=== PATIENT | male | born 1945 | race African-American/Black ===

== ENCOUNTER 2022-01-22 04:55 | Inpatient (IN) | payer MEDICARE ==
[~2022-01-22] VITALS: Ht 182.9 cm; Wt 89.4 kg
[2022-01-22] MEDS ORDERED: SODIUM CHLORIDE 0.9% 1,000 ML IV ONE (05:15)
[2022-01-22 05:48] LABS: BASOPHILS % 0.7 % (0.0-2.0); HEMATOCRIT. 34.2 % (42.0-52.0); LYMPHOCYTES % 20.2 % (20.0-50.0); MEAN CORPUSCULAR HEMOGLOBIN 29.4 pg (28.0-32.0); MEAN CORPUSCULAR VOLUME 91.6 fL (80.0-94.0); MEAN PLATELET VOLUME 7.7 fl (7.4-10.4); MONOCYTES % 13.1 % (2.0-8.0); PLATELET 330 x1000/uL (130-400); RED BLOOD CELL COUNT 3.74 mill/uL (4.7-6.1); RED CELL DISTRIBUTION WIDTH 14.8 % (11.6-14.6)
[2022-01-22 05:54] LABS: CHLORIDE 106 mEq/L (98-107)
[2022-01-22] MEDS ORDERED: METHYLPREDNISOLONE SOD SUCC 125 MG/2 ML VIAL IV ONE (07:45)
[2022-01-22] MEDS ORDERED: ALBUTEROL (0.083%) 2.5MG/3ML NEB HHN ONE (08:30)
[2022-01-22 10:02] LABS: BG BASE EXCESS 1.9 mmol/L (-2.0-2.0); BG CARBOXYHEMOGLOBIN 0.3 % (0.5-1.5); BG FRACTION INSPIRED OXYGEN 100; BG HCO3 ACT 28.6 mmol/L (22.0-26.0); BG METHEMOGLOBIN 0.1 % (0.0-1.5); BG OXYHEMOGLOBIN 90.6 % (94.0-97.0); BG PCO2 54.3 mmHg (35.0-45.0); BG PO2 67.2 mmHg (75.0-100.0); BG SAMPLE SITE UAL; BG TOTAL HEMOGLOBIN 12.1 g/dL (12.0-18.0); BG VENT MODE HIGH FLOW
[2022-01-22] MEDS ORDERED: DIGOXIN 500MCG/2ML AMP IV NR ×3 (13:45→18:30)
[2022-01-22] MEDS ORDERED: HYDROCODONE/ACETAMINOPHEN 5/325MG TABLET PO PRN ×2 (13:45→14:00)
[2022-01-22] MEDS ORDERED: ACETAMINOPHEN 650MG SUPP PR PRN ×2 (13:45→14:00)
[2022-01-22] MEDS ORDERED: DIPHENHYDRAMINE 50MG/ML VIAL IV PRN ×2 (13:45→14:00)
[2022-01-22] MEDS ORDERED: MAGNESIUM/ALUMINUM HYDROXIDE/SIMETHICONE 30ML UDC PO PRN ×2 (13:45→14:00)
[2022-01-22] MEDS ORDERED: IPRATROPIUM/ALBUTEROL 0.5-3(2.5)MG/3ML NEB NEB SCH (13:45)
[2022-01-22] MEDS ORDERED: GUAIFENESIN 200MG/10ML SUGAR FREE UDC PO PRN ×2 (13:45→14:00)
[2022-01-22] MEDS ORDERED: NA PHOS,M-B/NA PHOS,DI-BA ENEMA 118ML PR PRN ×2 (13:45→14:00)
[2022-01-22] MEDS ORDERED: DOCUSATE SODIUM 100MG CAPSULE PO PRN ×2 (13:45→14:00)
[2022-01-22] MEDS ORDERED: ONDANSETRON HCL 4MG/2ML INJ IV PRN ×2 (13:45→14:00)
[2022-01-22] MEDS ORDERED: ACETAMINOPHEN 325MG TABLET PO PRN ×2 (13:45→14:00)
[2022-01-22] MEDS ORDERED: IPRATROPIUM/ALBUTEROL 0.5-3(2.5)MG/3ML NEB NEB PRN ×2 (13:45→14:00)
[2022-01-22] MEDS ORDERED: METHYLPREDNISOLONE SOD SUCC 125 MG/2 ML VIAL IV SCH (13:45)
[2022-01-22] MEDS ORDERED: CLONIDINE 0.1MG TABLET PO PRN ×2 (13:45→14:00)
[2022-01-22] MEDS ORDERED: FAMOTIDINE 20MG/2ML VIAL IV SCH (13:45)
[2022-01-22] MEDS ORDERED: LORAZEPAM 0.5MG TABLET PO PRN ×2 (13:45→14:00)
[2022-01-22] MEDS ORDERED: MORPHINE SULFATE 2 MG/ML CPJ (NOT FOR IM USE) IV PRN (14:00)
[2022-01-22] MEDS ORDERED: ACETYLCYSTEINE 100MG/ML 10% VIAL 4ML INH SCH (14:00)
[2022-01-22] MEDS ORDERED: PIPERACILLIN/TAZOBACTAM 3.375 G in DEXTROSE 5% WATER 50 ML IV SCH ×2 (14:00→21:00)
[2022-01-22] MEDS ORDERED: NALOXONE HCL 0.4MG/ML VIAL IV PRN (14:15)
[2022-01-22] MEDS: ACETYLCYSTEINE 100MG/ML 10% VIAL 4ML INH SCH ×2 (14:30→21:50)
[2022-01-22] MEDS: PIPERACILLIN/TAZOBACTAM 3.375G in DEXT 5% WATER 50ML IV SCH (14:34)
[2022-01-22] MEDS: METHYLPREDNISOLONE SOD SUCC 40 MG/ML VIAL IV SCH ×2 (14:35→23:44)
[2022-01-22] MEDS: FAMOTIDINE 20MG/2ML VIAL IV SCH (14:40)
[2022-01-22 16:25] LABS: INR 1.1; PROTHROMBIN TIME 11.9 sec (9.6-11.0)
[2022-01-22 17:13] LABS: BG BASE EXCESS 0.7 mmol/L (-2.0-2.0); BG CARBOXYHEMOGLOBIN 0.2 % (0.5-1.5); BG DEOXYHEMOGLOBIN 12.3 % (0.0-5.0); BG FRACTION INSPIRED OXYGEN 40; BG HCO3 ACT 26.2 mmol/L (22.0-26.0); BG METHEMOGLOBIN 0.3 % (0.0-1.5); BG OXYGEN SATURATION 87.6 % (92.0-98.5); BG OXYHEMOGLOBIN 87.2 % (94.0-97.0); BG PCO2 45.7 mmHg (35.0-45.0); BG PH 7.376 (7.350-7.450); BG PO2 56.4 mmHg (75.0-100.0); BG SAMPLE SITE RIGHT RADIAL; BG TOTAL HEMOGLOBIN 11.4 g/dL (12.0-18.0); BG VENT MODE MASK - BIPAP
[2022-01-22 17:45] VITALS: BP 96/58
[2022-01-22 17:59] VITALS: BP 96/58
[2022-01-22] MEDS ORDERED: TRAZ-251 MT (18:07)
[2022-01-22] MEDS ORDERED: LISI40TA13 MT (18:07)
[2022-01-22] MEDS ORDERED: SPIR25TA6 MT (18:07)
[2022-01-22] MEDS ORDERED: APIX5TAB PO (18:07)
[2022-01-22] MEDS ORDERED: CARV12.545 MT (18:07)
[2022-01-22] MEDS ORDERED: POTA-189 PO (18:07)
[2022-01-22] MEDS ORDERED: FINA5TAB3 PO (18:07)
[2022-01-22] MEDS ORDERED: TAMS-11 PO (18:07)
[2022-01-22] MEDS ORDERED: FURO40TA5 MT (18:07)
[2022-01-22] MEDS ORDERED: ATOR40TA70 PO (18:07)
[2022-01-22] MEDS ORDERED: HYDR-4001 MT (18:07)
[2022-01-22] MEDS ORDERED: SILD100T69 MT (18:07)
[2022-01-22 18:34] LABS: BG BASE EXCESS -0.3 mmol/L (-2.0-2.0); BG CARBOXYHEMOGLOBIN 0.3 % (0.5-1.5); BG DEOXYHEMOGLOBIN 1.8 % (0.0-5.0); BG FRACTION INSPIRED OXYGEN 100; BG HCO3 ACT 25.6 mmol/L (22.0-26.0); BG METHEMOGLOBIN 0.1 % (0.0-1.5); BG OXYGEN SATURATION 98.2 % (92.0-98.5); BG OXYHEMOGLOBIN 97.8 % (94.0-97.0); BG PCO2 47.2 mmHg (35.0-45.0); BG PH 7.352 (7.350-7.450); BG PO2 119.3 mmHg (75.0-100.0); BG SAMPLE SITE RIGHT RADIAL; BG TOTAL HEMOGLOBIN 11.5 g/dL (12.0-18.0); BG VENT MODE MASK - BIPAP
[2022-01-22] MEDS: IPRATROPIUM/ALBUTEROL 0.5-3(2.5)MG/3ML NEB NEB SCH (21:50)
[2022-01-22 22:00] VITALS: BP 144/85
[2022-01-23] VITALS (17 sets, daily range): BP systolic 108–151; BP diastolic 52–103
[2022-01-23] MEDS: PIPERACILLIN/TAZOBACTAM 3.375G in DEXT 5% WATER 50ML IV SCH ×4 (00:10→21:04)
[2022-01-23] MEDS: IPRATROPIUM/ALBUTEROL 0.5-3(2.5)MG/3ML NEB NEB SCH ×4 (03:57→20:15)
[2022-01-23] MEDS: METHYLPREDNISOLONE SOD SUCC 40 MG/ML VIAL IV SCH ×3 (05:59→21:04)
[2022-01-23 06:56] LABS: BASOPHILS % 0.1 % (0.0-2.0); HEMATOCRIT. 34.5 % (42.0-52.0); LYMPHOCYTES % 8.4 % (20.0-50.0); MEAN CORPUSCULAR HEMOGLOBIN 29.2 pg (28.0-32.0); MEAN CORPUSCULAR VOLUME 91.2 fL (80.0-94.0); MEAN PLATELET VOLUME 7.8 fl (7.4-10.4); MONOCYTES % 7.6 % (2.0-8.0); NEUTROPHILS % 83.9 % (40.0-76.0); PLATELET 341 x1000/uL (130-400); RED BLOOD CELL COUNT 3.78 mill/uL (4.7-6.1)
[2022-01-23 07:23] LABS: CHLORIDE 107 mEq/L (98-107)
[2022-01-23] MEDS: ACETYLCYSTEINE 100MG/ML 10% VIAL 4ML INH SCH ×2 (07:54→14:06)
[2022-01-23] MEDS: FAMOTIDINE 20MG/2ML VIAL IV SCH (09:27)
[2022-01-23 09:48] LABS: BG CARBOXYHEMOGLOBIN 0.1 % (0.5-1.5); BG DEOXYHEMOGLOBIN 7.9 % (0.0-5.0); BG FRACTION INSPIRED OXYGEN 100; BG HCO3 ACT 30.2 mmol/L (22.0-26.0); BG METHEMOGLOBIN 0.2 % (0.0-1.5); BG OXYGEN SATURATION 92.1 % (92.0-98.5); BG OXYHEMOGLOBIN 91.8 % (94.0-97.0); BG PCO2 47.2 mmHg (35.0-45.0); BG PH 7.424 (7.350-7.450); BG PO2 62.7 mmHg (75.0-100.0); BG SAMPLE SITE RIGHT RADIAL; BG TOTAL HEMOGLOBIN 12.2 g/dL (12.0-18.0); BG VENT MODE HIGH FLOW
[2022-01-23] MEDS: ALPRAZOLAM 0.25 MG TABLET PO PRN (10:20)
[2022-01-23] MEDS ORDERED: SILDENAFIL CITRATE MT SCH (10:45)
[2022-01-23] MEDS ORDERED: SPIRONOLACTONE 5MG/ML 1ML ORAL SYR(NEO) PO SCH (10:45)
[2022-01-23] MEDS ORDERED: DIGOXIN 500MCG/2ML AMP IV NR (11:15)
[2022-01-23] MEDS: FUROSEMIDE 40MG TABLET PO SCH (11:37)
[2022-01-23] MEDS: TAMSULOSIN HCL 0.4MG SR CAPSULE PO SCH (11:38)
[2022-01-23] MEDS: SPIRONOLACTONE 25MG TABLET PO SCH (11:38)
[2022-01-23] MEDS: FINASTERIDE 5MG TABLET PO SCH (11:39)
[2022-01-23] MEDS: ENOXAPARIN 100MG/ML SYR SUBCUT SCH ×2 (11:40→21:04)
[2022-01-23] MEDS ORDERED: DIGOXIN 500MCG/2ML AMP IV PRN (11:45)
[2022-01-23] MEDS ORDERED: MORPHINE SULFATE 2 MG/ML CPJ (NOT FOR IM USE) IV NR (12:00)
[2022-01-23] MEDS: DILTIAZEM HCL 30MG TABLET PO SCH ×2 (13:02→17:49)
[2022-01-23 14:40] LABS: CLARITY URINE CLOUDY (CLEAR); COLOR URINE RED (YELLOW); KETONES URINE NEGATIVE (NEGATIVE); LEUKOCYTE ESTERASE URINE 2+ (NEGATIVE); NITRITE URINE NEGATIVE (NEGATIVE); OCCULT BLOOD URINE 3+ (NEGATIVE); PROTEIN URINE 2+ (NEGATIVE); SPECIFIC GRAVITY URINE 1.017 (1.005-1.030); UROBILINOGEN URINE 0.2 E.U./dL (0.2-1.0)
[2022-01-23] MEDS: DIGOXIN 500MCG/2ML AMP IV SCH (17:49)
[2022-01-23] MEDS: TRAZODONE HCL 50MG TABLET PO SCH (21:05)
[2022-01-23] MEDS: ATORVASTATIN CALCIUM 40MG TABLET PO SCH (21:05)
[2022-01-24] VITALS (12 sets, daily range): BP systolic 106–140; BP diastolic 57–80
[2022-01-24] MEDS: IPRATROPIUM/ALBUTEROL 0.5-3(2.5)MG/3ML NEB NEB SCH ×4 (01:02→20:27)
[2022-01-24] MEDS: ALPRAZOLAM 0.25 MG TABLET PO PRN (01:10)
[2022-01-24] MEDS: DILTIAZEM HCL 30MG TABLET PO SCH ×5 (01:10→23:04)
[2022-01-24] MEDS: METHYLPREDNISOLONE SOD SUCC 40 MG/ML VIAL IV SCH ×3 (05:01→21:40)
[2022-01-24] MEDS: PIPERACILLIN/TAZOBACTAM 3.375G in DEXT 5% WATER 50ML IV SCH ×3 (05:01→21:40)
[2022-01-24 06:18] LABS: HEMATOCRIT. 32.1 % (42.0-52.0); HEMOGLOBIN. 10.5 g/dL (14.0-18.0); MEAN CORPUSCULAR HEMOGLOBIN 29.2 pg (28.0-32.0); MEAN CORPUSCULAR VOLUME 89.1 fL (80.0-94.0); MEAN PLATELET VOLUME 8.2 fl (7.4-10.4); PLATELET 355 x1000/uL (130-400); RED CELL DISTRIBUTION WIDTH 15.5 % (11.6-14.6)
[2022-01-24 06:35] LABS: CHLORIDE 108 mEq/L (98-107)
[2022-01-24] MEDS: FINASTERIDE 5MG TABLET PO SCH (08:44)
[2022-01-24] MEDS: FUROSEMIDE 40MG TABLET PO SCH (08:45)
[2022-01-24] MEDS: SPIRONOLACTONE 25MG TABLET PO SCH (08:45)
[2022-01-24] MEDS: FAMOTIDINE 20MG/2ML VIAL IV SCH (08:45)
[2022-01-24] MEDS: TAMSULOSIN HCL 0.4MG SR CAPSULE PO SCH (08:45)
[2022-01-24] MEDS: ENOXAPARIN 100MG/ML SYR SUBCUT SCH ×2 (08:46→18:24)
[2022-01-24] MEDS: ACETYLCYSTEINE 100MG/ML 10% VIAL 4ML INH SCH ×2 (09:04→15:09)
[2022-01-24 10:03] LABS: PLATELET ESTIMATE NORMAL
[2022-01-24 16:51] LABS: BG BASE EXCESS 3.2 mmol/L (-2.0-2.0); BG CARBOXYHEMOGLOBIN 0.1 % (0.5-1.5); BG DEOXYHEMOGLOBIN 6.2 % (0.0-5.0); BG FRACTION INSPIRED OXYGEN 100; BG METHEMOGLOBIN 0.3 % (0.0-1.5); BG OXYGEN SATURATION 93.8 % (92.0-98.5); BG OXYHEMOGLOBIN 93.4 % (94.0-97.0); BG PCO2 50.1 mmHg (35.0-45.0); BG PH 7.381 (7.350-7.450); BG PO2 73.3 mmHg (75.0-100.0); BG SAMPLE SITE RIGHT RADIAL; BG TOTAL HEMOGLOBIN 11.5 g/dL (12.0-18.0); BG VENT MODE MASK - BIPAP
[2022-01-24] MEDS: DIGOXIN 500MCG/2ML AMP IV SCH (17:36)
[2022-01-24] MEDS: FUROSEMIDE 40MG/4ML VIAL IVP SCH (17:36)
[2022-01-24] MEDS: ATORVASTATIN CALCIUM 40MG TABLET PO SCH (21:40)
[2022-01-24] MEDS: TRAZODONE HCL 50MG TABLET PO SCH (21:40)
[2022-01-25] VITALS (13 sets, daily range): BP systolic 102–132; BP diastolic 45–82
[2022-01-25] MEDS: ACETYLCYSTEINE 100MG/ML 10% VIAL 4ML INH SCH ×4 (00:10→21:14)
[2022-01-25] MEDS: IPRATROPIUM/ALBUTEROL 0.5-3(2.5)MG/3ML NEB NEB SCH ×4 (00:10→21:14)
[2022-01-25] MEDS: PIPERACILLIN/TAZOBACTAM 3.375G in DEXT 5% WATER 50ML IV SCH ×3 (06:18→21:38)
[2022-01-25] MEDS: METHYLPREDNISOLONE SOD SUCC 40 MG/ML VIAL IV SCH ×3 (06:18→21:38)
[2022-01-25] MEDS: DILTIAZEM HCL 30MG TABLET PO SCH ×3 (06:19→16:47)
[2022-01-25 06:43] LABS: HEMATOCRIT. 31.1 % (42.0-52.0); HEMOGLOBIN. 10.1 g/dL (14.0-18.0); MEAN CORPUSCULAR HEMOGLOBIN 28.9 pg (28.0-32.0); MEAN CORPUSCULAR VOLUME 88.9 fL (80.0-94.0); MEAN PLATELET VOLUME 8.1 fl (7.4-10.4); PLATELET 338 x1000/uL (130-400); RED CELL DISTRIBUTION WIDTH 15.1 % (11.6-14.6)
[2022-01-25 07:29] LABS: CHLORIDE 106 mEq/L (98-107)
[2022-01-25] MEDS: ENOXAPARIN 100MG/ML SYR SUBCUT SCH ×2 (09:00→21:39)
[2022-01-25] MEDS: FUROSEMIDE 40MG/4ML VIAL IVP SCH ×2 (09:38→16:46)
[2022-01-25] MEDS: TAMSULOSIN HCL 0.4MG SR CAPSULE PO SCH (09:39)
[2022-01-25] MEDS: SPIRONOLACTONE 25MG TABLET PO SCH (09:39)
[2022-01-25] MEDS: FINASTERIDE 5MG TABLET PO SCH (09:39)
[2022-01-25] MEDS: FAMOTIDINE 20MG TABLET PO SCH (09:39)
[2022-01-25] MEDS: DIGOXIN 500MCG/2ML AMP IV SCH (16:47)
[2022-01-25] MEDS: TRAZODONE HCL 50MG TABLET PO SCH (21:38)
[2022-01-25] MEDS: ATORVASTATIN CALCIUM 40MG TABLET PO SCH (21:38)
[2022-01-26] VITALS (13 sets, daily range): BP systolic 96–156; BP diastolic 47–71
[2022-01-26] MEDS: IPRATROPIUM/ALBUTEROL 0.5-3(2.5)MG/3ML NEB NEB SCH ×4 (01:36→21:20)
[2022-01-26 05:45] LABS: HEMATOCRIT. 31.1 % (42.0-52.0); HEMOGLOBIN. 10.1 g/dL (14.0-18.0); MEAN CORPUSCULAR HEMOGLOBIN 29.1 pg (28.0-32.0); MEAN CORPUSCULAR VOLUME 89.8 fL (80.0-94.0); PLATELET 295 x1000/uL (130-400); RED BLOOD CELL COUNT 3.47 mill/uL (4.7-6.1); RED CELL DISTRIBUTION WIDTH 15.1 % (11.6-14.6)
[2022-01-26 06:04] LABS: CHLORIDE 103 mEq/L (98-107)
[2022-01-26] MEDS: METHYLPREDNISOLONE SOD SUCC 40 MG/ML VIAL IV SCH ×3 (06:07→21:25)
[2022-01-26] MEDS: PIPERACILLIN/TAZOBACTAM 3.375G in DEXT 5% WATER 50ML IV SCH ×3 (06:07→21:16)
[2022-01-26] MEDS: DILTIAZEM HCL 30MG TABLET PO SCH ×3 (06:27→11:37)
[2022-01-26] MEDS: ACETYLCYSTEINE 100MG/ML 10% VIAL 4ML INH SCH ×2 (07:43→14:54)
[2022-01-26] MEDS: FUROSEMIDE 40MG/4ML VIAL IVP SCH ×2 (09:20→17:43)
[2022-01-26] MEDS: FAMOTIDINE 20MG TABLET PO SCH (09:20)
[2022-01-26] MEDS: FINASTERIDE 5MG TABLET PO SCH (09:20)
[2022-01-26] MEDS: TAMSULOSIN HCL 0.4MG SR CAPSULE PO SCH (09:23)
[2022-01-26] MEDS: SPIRONOLACTONE 25MG TABLET PO SCH (09:23)
[2022-01-26] MEDS: ENOXAPARIN 100MG/ML SYR SUBCUT SCH ×2 (09:24→21:17)
[2022-01-26 10:27] LABS: BG BASE EXCESS 6.1 mmol/L (-2.0-2.0); BG CARBOXYHEMOGLOBIN 0.3 % (0.5-1.5); BG DEOXYHEMOGLOBIN 5.6 % (0.0-5.0); BG FRACTION INSPIRED OXYGEN 100; BG HCO3 ACT 30.3 mmol/L (22.0-26.0); BG METHEMOGLOBIN 0.3 % (0.0-1.5); BG OXYGEN SATURATION 94.4 % (92.0-98.5); BG OXYHEMOGLOBIN 93.8 % (94.0-97.0); BG PCO2 42.1 mmHg (35.0-45.0); BG PH 7.475 (7.350-7.450); BG PO2 75.7 mmHg (75.0-100.0); BG SAMPLE SITE RIGHT RADIAL; BG TOTAL HEMOGLOBIN 11.7 g/dL (12.0-18.0); BG VENT MODE MASK - BIPAP
[2022-01-26] MEDS ORDERED: MIDODRINE HCL 5MG TABLET PO NR (11:15)
[2022-01-26] MEDS: MIDODRINE HCL 5MG TABLET PO SCH ×2 (13:08→17:43)
[2022-01-26 17:31] LABS: PLATELET ESTIMATE NORMAL
[2022-01-26] MEDS: DIGOXIN 125MCG TABLET PO SCH (17:43)
[2022-01-26 20:19] LABS: PLATELET ESTIMATE NORMAL
[2022-01-26] MEDS: TRAZODONE HCL 50MG TABLET PO SCH (21:17)
[2022-01-26] MEDS: ATORVASTATIN CALCIUM 40MG TABLET PO SCH (21:17)
[2022-01-27] VITALS (12 sets, daily range): BP systolic 94–120; BP diastolic 53–87
[2022-01-27] MEDS: IPRATROPIUM/ALBUTEROL 0.5-3(2.5)MG/3ML NEB NEB SCH ×4 (00:39→18:00)
[2022-01-27] MEDS: ACETYLCYSTEINE 100MG/ML 10% VIAL 4ML INH SCH ×3 (00:39→14:00)
[2022-01-27] MEDS: PIPERACILLIN/TAZOBACTAM 3.375G in DEXT 5% WATER 50ML IV SCH (06:05)
[2022-01-27] MEDS: METHYLPREDNISOLONE SOD SUCC 40 MG/ML VIAL IV SCH ×3 (06:06→22:17)
[2022-01-27 07:24] LABS: HEMATOCRIT. 32.1 % (42.0-52.0); HEMOGLOBIN. 10.4 g/dL (14.0-18.0); MEAN CORPUSCULAR VOLUME 89.4 fL (80.0-94.0); MEAN PLATELET VOLUME 7.7 fl (7.4-10.4); PLATELET 303 x1000/uL (130-400); RED BLOOD CELL COUNT 3.59 mill/uL (4.7-6.1); RED CELL DISTRIBUTION WIDTH 15.1 % (11.6-14.6)
[2022-01-27 07:57] LABS: CHLORIDE 99 mEq/L (98-107)
[2022-01-27] MEDS: FUROSEMIDE 40MG/4ML VIAL IVP SCH ×2 (09:27→17:58)
[2022-01-27] MEDS: MIDODRINE HCL 5MG TABLET PO SCH ×3 (09:27→17:58)
[2022-01-27] MEDS: FAMOTIDINE 20MG TABLET PO SCH (09:27)
[2022-01-27] MEDS: FINASTERIDE 5MG TABLET PO SCH (09:27)
[2022-01-27] MEDS: TAMSULOSIN HCL 0.4MG SR CAPSULE PO SCH (09:27)
[2022-01-27] MEDS: ENOXAPARIN 100MG/ML SYR SUBCUT SCH ×2 (09:28→22:17)
[2022-01-27] MEDS ORDERED: IPRA3AMP9 NEB (13:00)
[2022-01-27] MEDS ORDERED: P20 PO (13:00)
[2022-01-27] MEDS ORDERED: MIDO5TAB4 MT (13:00)
[2022-01-27 13:15] LABS: PLATELET ESTIMATE NORMAL
[2022-01-27] MEDS: MORPHINE SULFATE 2 MG/ML CPJ (NOT FOR IM USE) IV PRN ×2 (16:14→22:36)
[2022-01-27] MEDS: DIGOXIN 125MCG TABLET PO SCH (18:10)
[2022-01-27] MEDS: TRAZODONE HCL 50MG TABLET PO SCH (22:17)
[2022-01-27] MEDS: ATORVASTATIN CALCIUM 40MG TABLET PO SCH (22:17)
[2022-01-28] VITALS (13 sets, daily range): BP systolic 83–124; BP diastolic 46–84
[2022-01-28] MEDS: METHYLPREDNISOLONE SOD SUCC 40 MG/ML VIAL IV SCH ×3 (05:04→22:50)
[2022-01-28] MEDS: FINASTERIDE 5MG TABLET PO SCH (08:32)
[2022-01-28] MEDS: FAMOTIDINE 20MG TABLET PO SCH (08:32)
[2022-01-28] MEDS: MIDODRINE HCL 5MG TABLET PO SCH ×3 (08:32→17:46)
[2022-01-28] MEDS: FUROSEMIDE 40MG/4ML VIAL IVP SCH (08:32)
[2022-01-28] MEDS: TAMSULOSIN HCL 0.4MG SR CAPSULE PO SCH (08:32)
[2022-01-28] MEDS: ENOXAPARIN 100MG/ML SYR SUBCUT SCH ×2 (08:33→22:50)
[2022-01-28] MEDS: MORPHINE SULFATE 2 MG/ML CPJ (NOT FOR IM USE) IV PRN ×2 (08:33→14:25)
[2022-01-28] MEDS: IPRATROPIUM/ALBUTEROL 0.5-3(2.5)MG/3ML NEB NEB SCH ×4 (08:43→21:02)
[2022-01-28] MEDS: LORAZEPAM 2MG/ML CPJ IV PRN (12:09)
[2022-01-28] MEDS ORDERED: NALOXONE HCL 0.4MG/ML VIAL IV PRN (13:00)
[2022-01-28] MEDS: DIGOXIN 125MCG TABLET PO SCH (17:46)
[2022-01-28] MEDS: ATORVASTATIN CALCIUM 40MG TABLET PO SCH (22:50)
[2022-01-28] MEDS: TRAZODONE HCL 50MG TABLET PO SCH (22:52)
[2022-01-29] VITALS (11 sets, daily range): BP systolic 98–126; BP diastolic 51–72
[2022-01-29] MEDS: IPRATROPIUM/ALBUTEROL 0.5-3(2.5)MG/3ML NEB NEB SCH ×4 (00:45→21:10)
[2022-01-29] MEDS: METHYLPREDNISOLONE SOD SUCC 40 MG/ML VIAL IV SCH ×2 (06:36→14:36)
[2022-01-29] MEDS: ENOXAPARIN 100MG/ML SYR SUBCUT SCH ×2 (08:54→20:38)
[2022-01-29] MEDS: FUROSEMIDE 40MG/4ML VIAL IVP SCH (08:54)
[2022-01-29] MEDS: FINASTERIDE 5MG TABLET PO SCH (08:54)
[2022-01-29] MEDS: MIDODRINE HCL 5MG TABLET PO SCH ×3 (08:56→16:48)
[2022-01-29] MEDS: MORPHINE SULFATE 2 MG/ML CPJ (NOT FOR IM USE) IV PRN ×2 (08:57→18:26)
[2022-01-29] MEDS: FAMOTIDINE 20MG TABLET PO SCH (08:58)
[2022-01-29] MEDS: TAMSULOSIN HCL 0.4MG SR CAPSULE PO SCH (08:58)
[2022-01-29] MEDS: ATORVASTATIN CALCIUM 40MG TABLET PO SCH (20:38)
[2022-01-29] MEDS: TRAZODONE HCL 50MG TABLET PO SCH (20:38)
[2022-01-30] VITALS (18 sets, daily range): BP systolic 95–135; BP diastolic 43–103
[2022-01-30] MEDS: METHYLPREDNISOLONE SOD SUCC 40 MG/ML VIAL IV SCH ×3 (00:35→20:10)
[2022-01-30] MEDS: IPRATROPIUM/ALBUTEROL 0.5-3(2.5)MG/3ML NEB NEB SCH ×4 (01:23→20:09)
[2022-01-30 08:18] LABS: HEMATOCRIT. 33.8 % (42.0-52.0); HEMOGLOBIN. 10.8 g/dL (14.0-18.0); MEAN CORPUSCULAR HEMOGLOBIN 28.6 pg (28.0-32.0); MEAN CORPUSCULAR VOLUME 89.9 fL (80.0-94.0); MEAN PLATELET VOLUME 8.4 fl (7.4-10.4); PLATELET 334 x1000/uL (130-400); RED BLOOD CELL COUNT 3.76 mill/uL (4.7-6.1); RED CELL DISTRIBUTION WIDTH 15.4 % (11.6-14.6)
[2022-01-30 08:29] LABS: CHLORIDE 98 mEq/L (98-107)
[2022-01-30] MEDS: TAMSULOSIN HCL 0.4MG SR CAPSULE PO SCH (08:56)
[2022-01-30] MEDS: FAMOTIDINE 20MG TABLET PO SCH (08:56)
[2022-01-30] MEDS: FUROSEMIDE 40MG/4ML VIAL IVP SCH (08:56)
[2022-01-30] MEDS: MIDODRINE HCL 5MG TABLET PO SCH ×3 (08:57→16:15)
[2022-01-30] MEDS: FINASTERIDE 5MG TABLET PO SCH (08:57)
[2022-01-30] MEDS: ENOXAPARIN 100MG/ML SYR SUBCUT SCH ×2 (08:57→22:24)
[2022-01-30 10:50] LABS: PLATELET ESTIMATE NORMAL
[2022-01-30 14:52] LABS: BG BASE EXCESS 10.3 mmol/L (-2.0-2.0); BG CARBOXYHEMOGLOBIN 0.2 % (0.5-1.5); BG DEOXYHEMOGLOBIN 14.7 % (0.0-5.0); BG FRACTION INSPIRED OXYGEN 100; BG METHEMOGLOBIN 0.1 % (0.0-1.5); BG OXYGEN SATURATION 85.3 % (92.0-98.5); BG PCO2 53.3 mmHg (35.0-45.0); BG PH 7.448 (7.350-7.450); BG PO2 51.5 mmHg (75.0-100.0); BG SAMPLE SITE RIGHT RADIAL; BG TOTAL HEMOGLOBIN 12.1 g/dL (12.0-18.0); BG VENT MODE MASK - BIPAP
[2022-01-30] MEDS ORDERED: FUROSEMIDE 40MG/4ML VIAL IVP NR (16:00)
[2022-01-30] MEDS ORDERED: DIGOXIN 125MCG TABLET PO SCH (18:00)
[2022-01-30] MEDS: ATORVASTATIN CALCIUM 40MG TABLET PO SCH (22:24)
[2022-01-30] MEDS: TRAZODONE HCL 50MG TABLET PO SCH (22:24)
[2022-01-31] VITALS (10 sets, daily range): BP systolic 107–153; BP diastolic 48–86
[2022-01-31] MEDS: MORPHINE SULFATE 2 MG/ML CPJ (NOT FOR IM USE) IV PRN ×3 (02:01→10:29)
[2022-01-31] MEDS: IPRATROPIUM/ALBUTEROL 0.5-3(2.5)MG/3ML NEB NEB SCH ×3 (02:56→14:13)
[2022-01-31] MEDS: LORAZEPAM 2MG/ML CPJ IV PRN ×2 (06:44→12:54)
[2022-01-31] MEDS: MIDODRINE HCL 5MG TABLET PO SCH ×4 (08:07→18:22)
[2022-01-31] MEDS: FUROSEMIDE 40MG/4ML VIAL IVP SCH (08:08)
[2022-01-31] MEDS: TAMSULOSIN HCL 0.4MG SR CAPSULE PO SCH (08:08)
[2022-01-31] MEDS: FAMOTIDINE 20MG TABLET PO SCH (08:08)
[2022-01-31] MEDS: METHYLPREDNISOLONE SOD SUCC 40 MG/ML VIAL IV SCH (08:08)
[2022-01-31] MEDS: ENOXAPARIN 100MG/ML SYR SUBCUT SCH (08:11)
[2022-01-31] MEDS: FINASTERIDE 5MG TABLET PO SCH (08:13)
[2022-01-31 11:09] LABS: HEMATOCRIT. 37.2 % (42.0-52.0); HEMOGLOBIN. 11.7 g/dL (14.0-18.0); MEAN CORPUSCULAR HEMOGLOBIN 28.4 pg (28.0-32.0); MEAN CORPUSCULAR VOLUME 89.8 fL (80.0-94.0); MEAN PLATELET VOLUME 8.6 fl (7.4-10.4); PLATELET 374 x1000/uL (130-400); RED BLOOD CELL COUNT 4.14 mill/uL (4.7-6.1); RED CELL DISTRIBUTION WIDTH 15.5 % (11.6-14.6)
[2022-01-31 11:16] LABS: CHLORIDE 96 mEq/L (98-107)
[2022-01-31] MEDS ORDERED: MORPHINE SULFATE 250 MG in DEXT 5% WATER 225 ML IV PRN (12:00)
[2022-01-31] MEDS ORDERED: MORPHINE SULFATE 2 MG/ML CPJ (NOT FOR IM USE) IV NR (12:00)
[2022-01-31 13:35] LABS: PLATELET ESTIMATE NORMAL
== END 2022-01-31 22:40 | DRG 180 ==
LOC: ER 04:55 → 5EST 13:08 → EDBEDREQ 13:11 → EDBEDREQSVC 13:11 → EDBEDREQTM 13:11 → ENRESERV 15:28 → 5EST 21:32 → 3WST 01-26 14:20
PROVIDERS: ADMIT Internal Medicine Pulmonary Disease; ATTEND Internal Medicine Pulmonary Disease
PROC: 5A09357 Assistance with Respiratory Ventilation, Less than 24 Consecutive Hours, Continuous Positive Airway Pressure (ICD-10-PCS; 2022-01-22)
PROC: 5A0935A Assistance with Respiratory Ventilation, Less than 24 Consecutive Hours, High Flow/Velocity Cannula (ICD-10-PCS; 2022-01-22)
PROC: 5A09357 Assistance with Respiratory Ventilation, Less than 24 Consecutive Hours, Continuous Positive Airway Pressure (ICD-10-PCS; 2022-01-23)
PROC: 5A0935A Assistance with Respiratory Ventilation, Less than 24 Consecutive Hours, High Flow/Velocity Cannula (ICD-10-PCS; 2022-01-23)
PROC: 5A09457 Assistance with Respiratory Ventilation, 24-96 Consecutive Hours, Continuous Positive Airway Pressure (ICD-10-PCS; 2022-01-24)
PROC: 0W9B3ZZ Drainage of Left Pleural Cavity, Percutaneous Approach (ICD-10-PCS; principal; 2022-01-25)
PROC: 5A09557 Assistance with Respiratory Ventilation, Greater than 96 Consecutive Hours, Continuous Positive Airway Pressure (ICD-10-PCS; 2022-01-26)
DX: C34.92 Malignant neoplasm of unspecified part of left bronchus or lung (principal); J18.9 Pneumonia, unspecified organism; J96.21 Acute and chronic respiratory failure with hypoxia; E43 Unspecified severe protein-calorie malnutrition; I50.43 Acute on chronic combined systolic (congestive) and diastolic (congestive) heart failure; E87.2 Acidosis; I31.3 Pericardial effusion (noninflammatory); I47.2 Ventricular tachycardia; I48.92 Unspecified atrial flutter; C79.51 Secondary malignant neoplasm of bone; C79.89 Secondary malignant neoplasm of other specified sites; J44.0 Chronic obstructive pulmonary disease with (acute) lower respiratory infection; I13.0 Hypertensive heart and chronic kidney disease with heart failure and stage 1 through stage 4 chronic kidney disease, or unspecified chronic kidney disease; N17.9 Acute kidney failure, unspecified; J91.0 Malignant pleural effusion; Z66 Do not resuscitate; D64.9 Anemia, unspecified; J39.8 Other specified diseases of upper respiratory tract; J45.909 Unspecified asthma, uncomplicated; R73.9 Hyperglycemia, unspecified; Z20.822 Contact with and (suspected) exposure to COVID-19; R74.01 Elevation of levels of liver transaminase levels; E78.5 Hyperlipidemia, unspecified; N18.9 Chronic kidney disease, unspecified; F41.9 Anxiety disorder, unspecified; I48.0 Paroxysmal atrial fibrillation; I49.9 Cardiac arrhythmia, unspecified; I49.3 Ventricular premature depolarization; Z95.0 Presence of cardiac pacemaker; Z79.01 Long term (current) use of anticoagulants; Z79.899 Other long term (current) drug therapy; Z87.891 Personal history of nicotine dependence; Z68.26 Body mass index [BMI] 26.0-26.9, adult; Z88.0 Allergy status to penicillin; Z51.5 Encounter for palliative care
CPT/HCPCS: 32555; 36415; 36600; 71045; 78580; 80048; 80053; 80162; 81003; 82040; 82375; 82805; 82962; 83615; 83735; 83880; 84443; 84478; 84484; 85025; 87077; 87426; 88108; 88312; 92950; 93005; 93306; 93970; 94640; 94660; 99291; A6261; C9803; J1160; J1200; J1650; J1940; J2060; J2270; J2543; J2920; J2930; J3490; J7030; J7060; J7608; A5200